=== PATIENT | female | born 1990 | race Two or more races ===

== ENCOUNTER 2025-10-02 12:46 | Observation (INO) | payer MEDICAID ==
[~2025-10-02 12:46] MED LIST: ASPI-543 PO; PREN-96 PO
--- NOTE | 2025-10-02 14:34 | DVH ---
CLINICAL HISTORY: decreased movement COMPARISON: US BIOPHYSICAL PROFILE on DOS: 09/28/25, US LESS THAN 14 WKS TRANSAB/VAG on DOS: 03/16/25, US PELVIS PREG on DOS: 09/22/23 TECHNIQUE: biophysical profile was performed. Transabdominal sonographic images of the fetus were obtained. FINDINGS: The fetus is in cephalic position. heart rate measures 150 BPM. Amniotic fluid index measures 14 cm. The placenta is posterior in position with no evidence of previa or abruption seen. Cervix appears closed on transabdominal images. Cervical length measures 2.4 cm. BPP profile is an overall score of 8/8, with 2/2 points for breathing, with at least one episode of breathing over a 30 second duration during a 30 minute observation, 2/2 points for movements, with 3 or more discrete body or limb movements, 2/2 points for tone, with one or more episodes of extremity extension with return to flexion, or opening and closing of hand, and 2/2 points for amniotic fluid, with at least 1 pocket of amniotic fluid that measures 2 cm in 2 perpendicular planes. IMPRESSION: 1. BPP score of 8/8. 2. Cervix appears closed and measures up to 2.4 cm in length.
--- NOTE | 2025-10-02 15:30 | DVHDS2 ---
Discharge Summary Date of Admission Oct 02, 2025 at 12:46 Date of Discharge: Oct 02, 2025 Admitting Diagnosis Forty weeks decreased movement questionable labor which was ruled out Wounds: None Labs/Diagnostic Data: None Brief Hx & Hospital Course: Patient had BPP and NST reassuring no sign of labor Consults/Reason for consult None Operations or Procedures NST BPP performed reassuring Condition at Discharge: Good Final Diagnosis/Problems List 40 weeks reassuring heart tones and ultrasound Discharge Disposition: Home Discharge Instruct/Medications Diet: Regular Activity: No Restrictions, As Tolerated Activity comment: Counts labor precautions Follow Up/Referral: Follow up with primary OBGYN return if decreased movement abnormal kick counts rupture of labor any concerns. Medications: None Scheduled Aspirin (Aspir-Low), 81 MG PO DAILY, (Reported) Vit W/ Ferrous Fumara ( One Daily), 1 TAB PO DAILY, (Reported) Discharge Statement: "Patient was advised to return to the ER or call 911 if any headaches, dizziness, shortness of breath, chest pain, abdominal pain, bleeding, fevers, or worsening of medical condition. Patient was counseled about treatment plan, medications, possible side effects, patientverbalized understanding. All questions were answered to the best of my ability. This discharge took greater then 30 minutes in planning, reviewing documentation, counseling the patient, and discussing with other team members." ASSESSMENT ASSESSMENT Assessment Visit Coding OBGYN Date of Service: Oct 02, 2025 Billing Provider: DEVORAH GIBSON DO SEXUAL ASSAULT NURSE Common Visit Codes: [id number] INP/OBS CARE(HIGH), 87434-NQX/OBS SAME DATE (LOW), 61811-RTI/OBS SAME DATE (MOD) SEXUAL ASSAULT NURSE Procedure Codes: 46878-42- NON-STRESS TEST DEVORAH GIBSON DO Oct 02, 2025 15:30
== END 2025-10-02 15:04 | disposition home or self-care (01) ==
LOC: UNDOADMOB 12:46 → LDRP 12:46
PROVIDERS: ADMIT Obstetrics & Gynecology; ATTEND Obstetrics & Gynecology
DX: O36.8130 Decreased fetal movements, third trimester, not applicable or unspecified (principal); Z3A.40 40 weeks gestation of pregnancy; Z98.890 Other specified postprocedural states
CPT/HCPCS: 59025; 76819; 81002; 94760; A4649; G0378

== ENCOUNTER 2025-10-05 17:30 | Inpatient (IN) | payer MEDICAID ==
[~2025-10-05] VITALS: Ht 160 cm; Wt 85.7 kg
[2025-10-05] MEDS ORDERED: LACTATED RINGER'S 1,000 ML IV SCH ×2 (17:45→19:00)
[2025-10-05] MEDS ORDERED: LIDOCAINE 2%HCL (LOCAL ANESTH.) INJ 20ML MDV IJ PRN (17:45)
[2025-10-05] MEDS ORDERED: BUTORPHANOL TARTRATE 2 MG/1 ML VIAL IV PRN ×2 (17:45)
[2025-10-05] MEDS ORDERED: hydrALAZINE HCL 20 MG/ML VL IV PRN ×2 (18:00→19:15)
[2025-10-05 18:35] LABS: Hematocrit 38.3 % (36.0-46.0); Hemoglobin 12.8 g/dL (12.2-16.2); Mean Corpuscular Hemoglobin 27.3 pg (28.0-32.0); Mean Corpuscular Volume 81.9 fL (80.0-100.0); Nucleated Red Blood Cells % 0.0 %
[2025-10-05 18:40] LABS: Urine Protein, UAD Negative (Negative)
[2025-10-05 18:52] LABS: Alanine Aminotransferase 14 U/L (7-40); Albumin 3.8 g/dL (3.2-4.8); Anion Gap 11 (5-15); BUN/Creatinine Ratio 16.4 (10.0-20.0); Blood Urea Nitrogen 10 mg/dL (9-23); Calcium 9.3 mg/dL (8.7-10.4); Potassium 4.0 mmol/L (3.5-5.1); Sodium 139 mmol/L (136-145); Total Protein 6.6 g/dL (5.7-8.2); Uric Acid 5.3 mg/dL (3.1-7.8)
[2025-10-05 18:56] LABS: Amphetamine Screen, Urine Neg (NEGATIVE); Barbiturate Scree,Urine Neg (NEGATIVE); Benzodiazephine Screen, Urine Neg (NEGATIVE); Cannabinoid Screen, Urine Neg (NEGATIVE); Cocaine Screen, Urine Neg (NEGATIVE); Opiate Scree,Urine Neg (NEGATIVE); Phencyclidine Screen, Urine Neg (NEGATIVE)
[2025-10-05 18:57] LABS: Alkaline Phosphatase 161 U/L (46-116); Bilirubin, Total 0.2 mg/dL (0.2-1.0); Carbon Dioxide 20 mmol/L (20-31); Chloride 108 mmol/L (98-107); Glucose 118 mg/dL (74-106)
[2025-10-05] MEDS: MAGNESIUM SULFATE 40MG/ML 1,000 ML IV ONE (18:59)
[2025-10-05] MEDS: MAGNESIUM SULFATE 100 ML IV ONE (18:59)
[2025-10-05] MEDS ORDERED: NALOXONE HCL 0.4 MG/ML VIAL IV ONE (19:00)
[2025-10-05] MEDS ORDERED: LIDOCAINE HCL 2 %PF INJ 10ML AMP IJ ONE (19:00)
[2025-10-05 19:07] LABS: Protein, Urine 20.8 mg/dL (1-14)
[2025-10-05] MEDS ORDERED: TERBUTALINE SULFATE 1 MG/ML 1ML VIAL SC PRN (19:15)
[2025-10-05] MEDS ORDERED: ONDANSETRON HCL 4 MG/2 ML VIAL IV PRN (19:15)
[2025-10-05] MEDS: MAGNESIUM SULFATE 100 ML IV STA (19:17)
--- NOTE | 2025-10-05 19:31 | DVHHP2 ---
OB CC & HPI Date Date of Admission: Oct 05, 2025 Patient Identification: : 4 Para: 2 EDC: Oct 02, 2025 EGA: 40.3 Chief Complaints: Reason for admission: active labor History of Present Complaints HPI: 35yo SIUP@40.3wks presents in labor. Pt reports UCs Q5 min that started this morning. Pt wants an epidural. Denies LOF/VB/GOLDBERG/vision changes/RUQ pain. Endorses +FM. PNC with Dr. Jaret [facility]ver[facility] office, no records available. Only 1hr GTT 130 and GBS negative. Pt reports PNC uncomplicated. Dating based on LMP c/w 1st trimester ultrasound. OB hx: 1. in 2013, complicated by preeclampsia 2. uncomplicated in 2023 3. SAB 2022 Past Medical History Cardiac: No pertinent Hx Pulmonary: No pertinent Hx Central Nervous System: No pertinent Hx GI: No pertinent Hx Hemotology/Oncology: No pertinent Hx Hepatobiliary: No pertinent Hx Psychiatric: No pertinent Hx Musculoskeletal: No pertinent Hx Rheumotologic: No pertinent Hx Infectious Disease: No peritnent Hx ENT: No pertinent Hx Renal/: No pertinent Hx Endocrine: No pertinent Hx Dermatology: No pertinent Hx Past Surgical History: Other (uteral reimplanation at 12yo) OB History OB History Care: Good Care (DIANE) Ultrasounds: Normal mid trimester US Obstetrical Complications: None Medical Complications: None Allergies: Coded Allergies: NO KNOWN ALLERGIES (Unverified , 10/05/25) Home Meds Reported Medications Vit W/ Ferrous Fumara ( One Daily) Daily Tab, 1 TAB PO DAILY, #90 TAB 3 Refills 09/28/25 Aspirin (Aspir-Low) 81 Mg Tab, 81 MG PO DAILY for 30 Days, MG 09/28/25 Current Medications Current Medications Medications (Trade) Dose Ordered Sig/Britney Route PRN Reason Start Time Stop Time Status Last Admin Lactated Ringer's 1,000 ml @ 125 mls/hr Q8H IV 10/05/25 17:45 Witch Kitty (Tucks) 1 pad PRN PRN TOP PERINEAL AREA DISCOMFORT 10/05/25 17:45 Sodium Lauryl Sulfate (Phisoderm) 240 ml PRN PRN TOP PERINEAL AREA DISCOMFORT 10/05/25 17:45 Benzocaine (Dermoplast) 1 applic PRN PRN TOP PERINEAL AREA DISCOMFORT 10/05/25 17:45 Butorphanol Tartrate (Stadol Injection) 1 mg Q4HPRN PRN IV MODERATE PAIN (4-6 PAIN SCALE) 10/05/25 17:45 Butorphanol Tartrate (Stadol Injection) 2 mg Q4HPRN PRN IV SEVERE PAIN (7-10 PAIN SCALE) 10/05/25 17:45 Lidocaine HCl (Xylocaine) 20 ml ONCE PRN IJ PERINEAL AREA DISCOMFORT 10/05/25 17:45 Hydralazine HCl (Apresoline Injection) 5 mg Q20MP PRN IV SBP>160 or DBP>105 10/05/25 18:00 10/05/25 19:01 DC Magnesium Sulfate 1,000 ml @ 50 mls/hr Q20H IV 10/05/25 19:00 Lactated Ringer's 1,000 ml @ 75 mls/hr [id number] IV 10/05/25 19:00 Magnesium Sulfate 100 ml @ 300 mls/hr ONCE STAT IV 10/05/25 18:56 10/05/25 19:15 DC 10/05/25 19:17 Labetalol HCl (Normodyne Tablet) 300 mg Q12HR PO 10/05/25 19:00 Hydralazine HCl (Apresoline Injection) 5 mg Q20MP PRN IV SBP>160 or DBP>95 10/05/25 19:15 Ondansetron HCl (Zofran) 4 mg Q4HP PRN IV NAUSEA / VOMITING 10/05/25 19:15 UNV Oxytocin 1,000 ml @ 6 ml/hr Q24H IV 10/05/25 19:15 UNV Terbutaline Sulfate (Brethine Inj) 0.25 mg ONCE PRN SC Uterine tachysystole 10/05/25 19:15 UNV Family & Social History Family/Social History Past Family/Social History: None pertinent Blood Type: Unknown Rubella: unknown RPR/VDRL: Unknown GBS Status: Unknown HBsAG: Unknown Review of Systems Constitutional: No symptom reported Ears, Nose, & Throat: No symptom reported Eyes: No symptom reported Pulmonary/Respiratory: No symptom reported Cardiovascular: No symptom reported Gastrointestinal: No symptom reported Genitourinary: No symptom reported Musculoskeletal: No symptom reported Skin: No symptom reported Psychiatric: No symptom reported Endocrine: No symptom reported Hemotologic/Lymphatic: No symptom reported OB Admission Exam Physical Exam Vitals: VSS except HTN (See cpn) HEENT: TMs Normal, Fontanelles Normal, Nasal Mucosa Normal, Eyes non-injected, Oropharynx Normal, PERRLA, Moist Membranes, EOMI Heart: Rhythm Normal Lungs: Clear Abdomen: Gravid Extremities: Normal Reflexes: Normal Cervical Dilatation: 4cm Effacement: Other (80) Station: 0 Membranes: Intact Heart Rate: 140's Accelerations: Accelerations Present Decelerations: No Decelerations Short Term Variability: Present Contractions on Admission: 6-10 Minutes Apart Duration: 60 Intensity: Moderate OB Plan Plan Admitting Diagnosis: Labor Plan: Other (labor augmentation with pitocin) Other Plan: A: 35yo IUP@40.3wks Spontaneous Labor with pitocin augmentatin Preeclampsia with severe features Category I EFM Intact Membranes GBS negative P: Admit to L&D Informed consent obtained Start IV pitocin when UCs space out. Pt agrees with POC monitoring per order Pain mgmt - RN to prep for epidural placement Frequent position changes in bed encouraged Limit SVE unless necessary Intrauterine resuscitation PRN Anticipate Severe range BPs, began antihypertensive IV protocol Hydralizine 5mg IVP q[address] Moncada's orders Begin Magnesium Sulfate for neuro protection per Dr. Moncada's orders Labetalol 300mg PO BID, per Dr. Moncada's orders Seizure precautions ordered Preeclampsia labs ordered Pennie Strange CNM co-management with Dr. Moncada. ABRBIE is managing labor while Dr. Moncada is managing preeclampsia. Primary RN notified of severe range BP parameters per Dr. Moncada (SBP >/= 160 and/or >/=DBP 95) and to call Dr. Moncada directly for preeclampsia/BP related issues. Visit Coding OBGYN Date of Service: Oct 05, 2025 Billing Provider: CRISTHIAN STRANGE CNM INCINERATOR PLANT LABORER Common Visit Codes: [id number] INP/OBS CARE (HIGH) INCINERATOR PLANT LABORER Procedure Codes: 38292-43- NON-STRESS TEST TONI BANDA STUDENTMDW Oct 05, 2025 19:31
[2025-10-05 19:36] LABS: INR 0.91 (0.9-1.15); Partial Thromboplastin Time 26.5 SEC (24.5-34.5); Prothrombin Time 9.7 sec (9.3-11.8)
--- NOTE | 2025-10-05 19:46 | DVH ---
LIMITED OB ULTRASOUND > 14 WKS: HISTORY: Post dates TECHNIQUE: Multiple real-time grayscale images of the gravid uterus with duplex Doppler color flow and M-mode spectral analysis. TRANSDUCER: Transabdominal FINDINGS: IUP single live fetus at 36 weeks 3 days based on composite averages of the BPD, head circumference, abdominal circumference and femur length Estimated weight 2921 g, +/-438 0.15 g; (6 lb 7 oz +/-15 oz) heart rate 141 beats per minute. KRISTAL 8.4 cm Cervix N/V Cephalic Presentation Posterior fundal Grade 3 Placenta without previa or abruption. ANATOMY: 4-CHAMBER HEART: Within normal limits STOMACH: Within normal limits RIGHT KIDNEY: Within normal limits LEFT KIDNEY: Within normal limits BLADDER: Within normal limits GESTATIONAL DATING: BPD: 9.93 cm = 36 weeks 1 day range 33 weeks 0 days - 39 weeks 2 days HC: 32.47 cm = 36 weeks 5 days range 34 weeks 0 days- 39 weeks 3 days AC: 32.49 cm = 36 weeks 3 days range 33 weeks 3 days 39 weeks 3 days FL: 7.07 cm = 36 weeks 2 days range 33 weeks 2 days- 39 weeks 1 day CI: 81.63 range 70.00 -86.00 FL/BPD: 79.17 range 71.0 -87.0 HC/AC: 1.00 range 0.92-1.07 FL/AC: 21.76 range 20.00 -24.00 FL/HC: 21 0.77 range 20.40 - 22.31 IMPRESSION: 1. IUP single live fetus at 36 weeks 3 days ,AUA corresponding to an ARIES of 10/30/2025 2. FHR: 141 bpm 3. Exam was difficult due to active labor. Difficult to obtain measurements. Placenta visualized without previa or abruption
[2025-10-05] MEDS: LABETALOL HCL 200 MG TAB PO SCH (20:46)
[2025-10-05] MEDS: WITCH HAZEL-GLYCERIN PAD TOP PRN (20:48)
[2025-10-05] MEDS: PHISODERM TOP SOLN 240ML BTL TOP PRN (20:48)
[2025-10-05] MEDS: DERMOPLAST 60ML BOTTLE TOP PRN (20:48)
--- NOTE | 2025-10-05 21:35 | EPIDURAL ---
Anesthesia Procedural Note - Epidural Date: Oct 05, 2025 Informed consent obtained?: Yes Medication Administered: Fentanyl 100 mcg 2% Lidocaine Administered: 5 Medication Administered: ePHEDrine 5 mg IV Sterile prept drape: Yes Spinal level of insertion: L2-L3 Test dose of lidocaine & Epine: Negative Infusion started: Yes Start time: 21:00 End time: 21:35 OLVIN CASTILLO MD Oct 05, 2025 21:35
[2025-10-05] MEDS: MAGNESIUM SULFATE 40MG/ML 1,000 ML IV SCH (22:43)
[2025-10-05] MEDS: ROPIVACAINE HCL 100 ML ONE (22:46)
[2025-10-05] MEDS: fentaNYL CITRATE 100 MCG/2 ML VL IV ONE (22:53)
[2025-10-05] MEDS: ACETAMINOPHEN 325 MG TAB PO PRN (23:47)
[2025-10-06] MEDS: LACT. RINGERS/OXYTOCIN 20UNITS 1,000 ML IV SCH (00:53)
[2025-10-06] MEDS: CALCIUM CARB 500 MG CHEW TAB PO ONE (02:02)
[2025-10-06] MEDS: LACT. RINGERS/OXYTOCIN 20UNITS 500 ML IV ONE ×2 (03:35→03:36)
[2025-10-06] MEDS: IBUPROFEN 600 MG TAB PO PRN ×2 (04:04→11:04)
--- NOTE | 2025-10-06 06:41 | DVHPN2 ---
OB Labor Progress Note Date and Time Seen Date Seen: Oct 05, 2025 Time Seen: 21:40 Subjective Patient reports: Feels better Subjective Comment Pt comfortable with epidural Objective Vital Signs VSS except for BP, due to epidural see cpn Monitoring Method Monitoring Method: External Heart Rate Heart Rate Baseline: 145 Heart Rate Variability: Moderate Presence of FHR Accelerations: Yes Presence of FHR Decelerations: Yes Heart Rate Type of Decel: Variable Decelerations, Late Decelerations Changes in Trends of Patterns: Yes Are all 5 Components of the FH: Yes If NO Corrective Measures Comp: Intrauterine resusitation measures done Contractions Contractions Frequency: Occasional Duration of Contraction: 70 Contractions Intensity: Strong Contractions Resting Tone: Relaxed Membranes Membranes: Bulging Vaginal Exam Vag Exam Deferred: No Vaginal Exam Dilation: 5 Vaginal Exam Effacement: 80 Vaginal Exam Station: 0 Vaginal Exam Presentation: VTX Vaginal Exam Show: Small Medications Medications - Pitocin: No Medication - Epidural: Yes Medication - Other magnesium sulfate IV 2g/hr infusing per Dr. Moncada's order Lab Results Lab Results Vital Signs Date Time Temp Pulse Resp B/P (MAP) Pulse Ox O2 Delivery O2 Flow Rate FiO2 10/06/25 07:00 Room Air 10/05/25 22:53 125/73 10/05/25 21:46 90 Current Medications Medications (Trade) Dose Ordered Sig/Britney Start Time Stop Time Status Last Admin Dose Admin Lactated Ringer's 1,000 ml @ 125 mls/hr Q8H 10/05/25 17:45 Hold Witch Kitty (Tucks) 1 pad PRN PRN 10/05/25 17:45 10/05/25 20:48 1 PAD Sodium Lauryl Sulfate (Phisoderm) 240 ml PRN PRN 10/05/25 17:45 10/05/25 20:48 240 ML Benzocaine (Dermoplast) 1 applic PRN PRN 10/05/25 17:45 10/05/25 20:48 1 APPLIC Butorphanol Tartrate (Stadol Injection) 1 mg Q4HPRN PRN 10/05/25 17:45 10/05/25 23:01 DC Butorphanol Tartrate (Stadol Injection) 2 mg Q4HPRN PRN 10/05/25 17:45 10/05/25 23:01 DC Lidocaine HCl (Xylocaine) 20 ml ONCE PRN 10/05/25 17:45 10/06/25 03:40 DC Oxytocin 500 ml @ 999 mls/hr Q31M ONCE 10/05/25 17:45 10/06/25 03:40 DC 10/06/25 03:35 999 MLS/HR Oxytocin 500 ml @ 125 mls/hr Q4H ONCE 10/05/25 18:15 10/05/25 22:14 DC 10/06/25 03:36 125 MLS/HR Hydralazine HCl (Apresoline Injection) 5 mg Q20MP PRN 10/05/25 18:00 10/05/25 19:01 DC Magnesium Sulfate 1,000 ml @ 50 mls/hr Q20H 10/05/25 19:00 10/05/25 22:43 50 MLS/HR Lactated Ringer's 1,000 ml @ 75 mls/hr [id number] 10/05/25 19:00 10/06/25 03:40 DC Magnesium Sulfate 100 ml @ 300 mls/hr ONCE STAT 10/05/25 18:56 10/05/25 19:15 DC 10/05/25 19:17 300 MLS/HR Labetalol HCl (Normodyne Tablet) 300 mg Q12HR 10/05/25 19:00 10/05/25 20:46 300 MG Hydralazine HCl (Apresoline Injection) 5 mg Q20MP PRN 10/05/25 19:15 Naloxone HCl (Narcan) 0.2 mg PRN ONCE 10/05/25 19:00 10/06/25 03:40 DC Ephedrine Sulfate (ePHEDrine SULFATE) 10 mg PRN ONCE 10/05/25 19:00 10/06/25 03:40 DC 10/05/25 22:54 10 MG Fentanyl Citrate 100 mcg ONCE ONCE 10/05/25 19:00 10/06/25 03:40 DC 10/05/25 22:53 100 MCG Lidocaine HCl (Xylocaine-Pf 2% Injection) 10 ml ONCE ONCE 10/05/25 19:00 10/06/25 03:40 DC Ondansetron HCl (Zofran) 4 mg Q4HP PRN 10/05/25 19:15 Oxytocin 1,000 ml @ 6 ml/hr Q24H 10/05/25 19:15 10/06/25 03:40 DC 10/06/25 00:53 6 ML/HR Terbutaline Sulfate (Brethine Inj) 0.25 mg ONCE PRN 10/05/25 19:15 10/06/25 03:40 DC Acetaminophen (Tylenol Tablet) 975 mg Q6HP PRN 10/05/25 23:00 10/06/25 03:44 DC 10/05/25 23:47 975 MG Misoprostol (Cytotec) 1,000 mcg ONCE PRN 10/06/25 01:30 Oxytocin 10 unt ONCE PRN 10/06/25 01:30 Calcium Carbonate (Tums) 500 mg ONCE ONCE 10/06/25 02:00 10/06/25 02:01 DC 10/06/25 02:02 500 MG Ibuprofen (Motrin Tablet) 800 mg Q6HP PRN 10/06/25 03:45 10/06/25 04:04 800 MG Docusate Sodium (Colace Capsule) 200 mg HS 10/06/25 22:00 Acetaminophen (Tylenol Tablet) 650 mg Q4HP PRN 10/06/25 03:45 Docusate Sodium (Colace Capsule) 200 mg HS 10/06/25 22:00 Laboratory Tests Test 10/05/25 23:10 10/05/25 18:20 10/05/25 17:25 Range/Units Magnesium Lvl (Mg Sulfate Therapy) 4.92 4.0-7.1 mg/dL White Blood Count 10.7 4.4-10.8 10^3/uL Red Blood Count 4.67 4.0-5.20 10^6/uL Hemoglobin 12.8 12.2-16.2 g/dL Hematocrit 38.3 36.0-46.0 % Mean Corpuscular Volume 81.9 80.0-100.0 fL Mean Corpuscular Hemoglobin 27.3 L 28.0-32.0 pg Mean Corpuscular Hemoglobin Concent 33.3 32.0-36.0 g/dL Red Cell Distribution Width 15.0 H 11.8-14.3 % Platelet Count 289 140-450 10^3/uL Mean Platelet Volume 8.6 6.9-10.8 fL Neutrophils (%) (Auto) 78.4 37.0-80.0 % Lymphocytes (%) (Auto) 15.8 10.0-50.0 % Monocytes (%) (Auto) 4.0 0.0-12.0 % Eosinophils (%) (Auto) 0.9 0.0-7.0 % Basophils (%) (Auto) 0.9 0.0-2.0 % Neutrophils # (Auto) 8.4 1.6-8.6 10 ^3/uL Lymphocytes # (Auto) 1.7 0.4-5.4 10 ^3/uL Monocytes # (Auto) 0.4 0-1.3 10 ^3/uL Eosinophils # (Auto) 0.1 0-0.8 10 ^3/uL Basophils # (Auto) 0.1 0-0.2 10 ^3/uL Nucleated Red Blood Cells 0.0 % Prothrombin Time 9.7 9.3-11.8 sec Prothrombin Time INR 0.91 0.9-1.15 Activated Partial Thromboplast Time 26.5 24.5-34.5 SEC Sodium Level 139 136-145 mmol/L Potassium Level 4.0 3.5-5.1 mmol/L Chloride Level 108 H 98-107 mmol/L Carbon Dioxide Level 20 20-31 mmol/L Anion Gap 11 5-15 Blood Urea Nitrogen 10 9-23 mg/dL Creatinine 0.61 0.550-1.02 mg/dL Glomerular Filtration Rate Calc 119 >90 mL/min BUN/Creatinine Ratio 16.4 10.0-20.0 Serum Glucose 118 H 74-106 mg/dL Uric Acid 5.3 3.1-7.8 mg/dL Calcium Level 9.3 8.7-10.4 mg/dL Total Bilirubin 0.2 0.2-1.0 mg/dL Aspartate Amino Transferase (AST) 16 13-40 U/L Alanine Aminotransferase (ALT) 14 7-40 U/L Alkaline Phosphatase 161 H 46-116 U/L Total Protein 6.6 5.7-8.2 g/dL Albumin 3.8 3.2-4.8 g/dL Treponema pallidum Antibody Non-reactive Negative Hepatitis B Surface Antigen Negative Negative Hepatitis B Surface Antibody Positive H Negative Hepatitis C Antibody Negative Negative HIV (1&2) Antibody Negative Negative Rubella Antibody Positive Urine Color Colorless Yellow Urine Clarity Clear Clear Urine pH 6.0 5.0-9.0 Urine Specific [place] 1.006 1.001-1.035 Urine Protein Negative Negative Urine Ketones Negative Negative Urine Blood Negative Negative /uL Urine Nitrite Negative Negative Urine Bilirubin Negative Negative Urine Urobilinogen Normal Negative mg/dL Urine Leukocyte Esterase Negative Negative /uL Urine RBC None seen 0 - 4 /hpf Urine Microscopic WBC < 1 0-5 /HPF Urine Squamous Epithelial Cells Few <5 /hpf Urine Bacteria Few H None Seen /hpf Urine Creatinine 20.04 L 30.0-125.0 mg/dL Urine Protein/Creatinine Ratio 1.04 Urine Glucose Normal Normal mg/dL Urine Total Protein 20.8 H 1-14 mg/dL Urine Opiates Screen Neg NEGATIVE Urine Fentanyl Screen Neg NEGATIVE Urine Barbiturates Screen Neg NEGATIVE Urine Phencyclidine Screen Neg NEGATIVE Urine Amphetamines Screen Neg NEGATIVE Urine Benzodiazepines Screen Neg NEGATIVE Urine Cocaine Screen Neg NEGATIVE Urine Cannabinoids Screen Neg NEGATIVE Chlamydia trachomatis (CHENG) Pending Neisseria gonorrhoeae (CHENG) Pending Assessment Assessment A: 35yo IUP@40.3wks Spontaneous Labor with pitocin augmentation Preeclampsia with severe features Category II EFM Intact Membranes GBS negative Plan Plan P: Start IV pitocin when Category I EFM monitoring per order Pain mgmt - epidural in place Frequent position changes in bed encouraged Limit SVE unless necessary Intrauterine resuscitation PRN Anticipate Nicci. BARBIE Strange co-management with Dr. Moncada. BARBIE is managing labor while Dr. Moncada is managing preeclampsia. Primary RN notified of severe range BP parameters per Dr. Moncada (SBP >/= 160 and/or >/=DBP 95) and to call Dr. Moncada directly for preeclampsia/BP related issues. Plan discussed with: Patient, Spouse Visit Coding OBGYN Date of Service: Oct 06, 2025 Billing Provider: CRISTHIAN STARNGE CNM COLLAR TACKER Common Visit Codes: [id number] INP/OBS CARE(HIGH) TONI BANDA STUDENTMDW Oct 06, 2025 06:41
--- NOTE | 2025-10-06 06:58 | LDN2 ---
Labor and Delivery Note Date 10/06/25 Age 35 4 Para 3 now AB 1 EDC 10/02/2025 EGA 40.4 Diagnosis spontaneous labor, preeclampsia with severe features then . Vaginal Delivery: VTX Vacuum Assisted: No Placenta: Spontaneous Sex: Male Weight pending Apgars 8/9 Nuchal Cord Transected: No Amniotic Fluid: Meconium Stained, Thin Anesthesia epidural Episiotomy: No Extension: No Repaired with NONE EBL 100MLS QBL Labs Laboratory Tests 10/05/25 18:20: Hepatitis B Surface Antigen Negative, HIV (1&2) Antibody Negative, Rubella Antibody Positive Blood Bank 10/05/25 18:20: Blood Type A POSITIVE Complications preeclampsia with severe features Conditions Stable Software Development Specialist SOMU Comments/Significant Med Philippe At 0236 this 35yo now delivered a viable Male infant by w/ APGARS 8/9. CARMEN. SROM with light meconium at . TXA 1g IVPB given. Infant placed skin to skin on pts chest. Cord clamped and cut after pulsation ceased. Intact 3-vessel cord placenta delivered spontaneously, Gayla. Pitocin IV bolus started. Placenta sent to pathology due to pre-eclampsia. Patient had epidural anesthesia. Cervix/vagina/labia/perineum inspected and intact. Fundus at U, firm, midline, and light lochia. QBL 100ml. VSS. Count correct x2. Patient to care and baby to couplet care, both stable. Pt started on magnesium sulfate at 1g/hr for 12hrs per Dr. Moncada's order. Visit Coding OBGYN Date of Service: Oct 06, 2025 Billing Provider: CRISTHIAN NEIL CNM REQUIREMENTS ANALYST Common Visit Codes: PROCEDURE ONLY REQUIREMENTS ANALYST Procedure Codes: [id number] DEL INCLUDING TONI BANDA STUDENTMDW Oct 06, 2025 06:58
[2025-10-06 07:00] VITALS: BP 134/83; PULSE 86; RESP 16; TEMP 97.8; O2SAT 96
[2025-10-06] MEDS: ACETAMINOPHEN 325 MG TAB PO PRN (07:40)
[2025-10-06] MEDS ORDERED: TRANEXAMIC ACID 1,000 mg/10ml INJ VIAL IV ONE (10:56)
[2025-10-06 11:00] VITALS: BP 138/85; PULSE 82; RESP 17; TEMP 97.5; O2SAT 98
[2025-10-06 14:31] VITALS: BP 120/68; PULSE 83; RESP 16; TEMP 98.1; O2SAT 97
[2025-10-06 18:30] VITALS: BP 122/71; PULSE 81; RESP 16; TEMP 97.6; O2SAT 97
[2025-10-06] MEDS: OXYTOCIN 10UNIT/ML 1ML VIAL IM PRN (21:54)
[2025-10-06] MEDS: DOCUSATE SOD 100 MG CAP PO SCH (21:58)
[2025-10-06] MEDS ORDERED: DOCUSATE SOD 100 MG CAP PO SCH (22:00)
[2025-10-06] MEDS: ALBUTEROL SULF 2.5 MG/0.5ML(0.5%) NEB SOLN ONE (22:48)
[2025-10-06] MEDS: ALBUTEROL SULF 2.5 MG/0.5ML(0.5%) NEB SOLN NEB ONE (22:48)
[2025-10-06 23:00] VITALS: BP 109/61; PULSE 80; RESP 16; TEMP 97.8; O2SAT 98
[2025-10-07 00:31] VITALS: PULSE 75
[2025-10-07 03:06] VITALS: BP 113/66; PULSE 81; RESP 16; TEMP 97.9; O2SAT 99
[2025-10-07] MEDS ORDERED: IBU600T PO (05:58)
[2025-10-07] MEDS ORDERED: DOCU-94 PO (05:58)
[2025-10-07] MEDS ORDERED: LABE100T8 PO (05:58)
--- NOTE | 2025-10-07 06:24 | DVHPN2 ---
Progress Note Date Seen: Oct 07, 2025 Subjective Callie is resting L lateral upon entry to the room. Baby boy was transferred to [facility]. CNM visited with patient multiple times throughout the night. Patient reports feeling some asthma exacerbation and chest pressure. EKG done and normal sinus. Albuterol treatment done by RT. Patient states the pressure and trouble breathing resolved after treatment. Callie's labetalol has been held two nights in a row r/t lowered BP. SUBJECTIVE -Lochia minimal -Tolerating regular diet well. -Pain relieved with oral medication PRN -Ambulating and voiding well w/o feeling lightheaded or dizzy. -Passing flatus but no BM yet -Pumping and hand expressing -Desires and requests to be discharged home today (10/07) vital signs Vital Sign Date Time Temp Pulse Resp B/P (MAP) Pulse Ox O2 Delivery O2 Flow Rate FiO2 10/07/25 03:06 97.9 81 16 113/66 (82) 99 97.9 10/06/25 18:30 Room Air Total Intake and Output 10/06/25 10/06/25 10/07/25 15:00 23:00 07:00 Output Total 1200 ml Balance -1200 ml medications Current Medications Medications Dose Ordered Sig/Britney Route Start Time Stop Time Status Last Admin Dose Admin Lactated Ringer's 1,000 ml @ 125 mls/hr Q8H IV 10/05/25 17:45 Hold Witch Kitty 1 pad PRN PRN TOP 10/05/25 17:45 10/05/25 20:48 1 PAD Sodium Lauryl Sulfate 240 ml PRN PRN TOP 10/05/25 17:45 10/05/25 20:48 240 ML Benzocaine 1 applic PRN PRN TOP 10/05/25 17:45 10/05/25 20:48 1 APPLIC Magnesium Sulfate 1,000 ml @ 50 mls/hr Q20H IV 10/05/25 19:00 10/05/25 22:43 50 MLS/HR Hydralazine HCl 5 mg Q20MP PRN IV 10/05/25 19:15 Ondansetron HCl 4 mg Q4HP PRN IV 10/05/25 19:15 Misoprostol 1,000 mcg ONCE PRN SD 10/06/25 01:30 Oxytocin 10 unt ONCE PRN IM 10/06/25 01:30 Docusate Sodium 200 mg HS PO 10/06/25 22:00 Cancel Acetaminophen 650 mg Q4HP PRN PO 10/06/25 03:45 10/07/25 04:30 650 MG Docusate Sodium 200 mg HS PO 10/06/25 22:00 10/06/25 21:58 200 MG Ibuprofen 600 mg Q6HP PRN PO 10/06/25 10:45 10/07/25 03:01 600 MG Labetalol HCl 100 mg Q12HR PO 10/07/25 10:00 laboratory and microbiology Laboratory Tests 10/05/25 18:20 Test 10/05/25 18:20 Range/Units Serum Glucose 118 H 74-106 mg/dL Objective OBJECTIVE -A&O x4. No apparent distress. Affect appropriate -Afebrile, VSS -Chest: heart and lung sounds normal. -Breasts: Nipples intact w/o cracks or soreness -Abdomen: normal BS, soft, non-tender, no rebound or guarding, fundus firm @ U- 1, lochia minimal -Perineum: no edema, or erythema -Extremities: no edema or tenderness Problems(with codes): (1) Normal spontaneous vaginal delivery Assessment/Plan ASSESSMENT -35 yo now ppd #1 s/p doing well. -Blood Type: A+ -Pumping -Rubella Immune -Baby at [facility] -Asthma -Hx of pre-eclampsia and on magnesium during this delivery PLAN -Discussed held labetalol doses and BP trends with Dr Moncada. states to change labetalol order from 300mg BID to 100mg BID PO -Continue pain management with oral medications as previously ordered. Discharge medications, including labetalol, ordered and patient aware -Increase fluid intake and fiber in diet to promote regular bowel movements, Laxative PRN -Encouraged patient to continue taking vitamin and iron -Patient to follow-up with primary care if asthma symptoms persists -Educated patient on self care and warning signs of PPH, PPD, and pre-eclampsia. Answered all pt questions and concerns -Continue routine care and anticipate discharge today Plan discussed with: Patient Visit Coding OBGYN Date of Service: Oct 07, 2025 Billing Provider: DANG KWOK CNM PROJECT LEADER Common Visit Codes: [id number] INP/OBS CARE(MOD) DANG KWOK CNM Oct 07, 2025 06:24
--- NOTE | 2025-10-07 06:28 | DVHDS2 ---
Obstetrics Discharge Summary Obstetrics Discharge Summary Date of Admission: Oct 05, 2025 Date of Discharge: Oct 07, 2025 Reason For Admission: Onset of Labor Procedures: Mgmt of Obstetrics Compli (elevated BPs. Patient placed on magnesium infusion) Intrapartum Procedures: Spontaneous vaginal deliv Operative Complicat: None Discharge Diagnosis: Term -Delivered Discharge Information: Activity (Unrestricted. Advance as tolerated. Balance activities with rest periods. No heavy lifting, pushing or straining. Pelvic rest x 6 weeks), Diet (Routine regular diet rich in fiber, protein, iron and vitamin C with adequate fluid intake.), Medications (Ibuprofen 600mg every 6 hours as needed for pain. Colace 100mg twice a day as needed to keep bowel movements soft and prevent constipation. Continue Vitamin and iron. Labetalol 100mg PO BID), Instructions (Routine), Discharge to (Home), Accompanied by (partner), Discarge date (10/07/2025) Discharge Care Plan Instructions - self care instructions given - emergency signs and symptoms including but not limited to pre-eclampsia precautions and signs of infection, PPH & of PPD reviewed with patient. -Follow up with OB Provider in 2 weeks and again at 6 weeks Visit Coding OBGYN Date of Service: Oct 07, 2025 Billing Provider: DANG KWOK CNM ACCOUNTING FILE CLERK Common Visit Codes: 56231-WIS/OBS DISCH DAY >30MIN DANG KWOK CNM Oct 07, 2025 06:28
[2025-10-07 06:53] VITALS: BP 120/77; PULSE 90; RESP 16; TEMP 98.2; O2SAT 97
[2025-10-07] MEDS ORDERED: hydrALAZINE HCL 20 MG/ML VL IV ONE (08:30)
--- NOTE | 2025-10-07 09:44 | ECG ---
[facility] Test Date: 2025-10-06 Test Time: 22:56:37 Pat Name: GRACIE GU Department: Room: [facility] A Gender: F Multi Care Technician: MARIA LUISA MACHADO : 1990 Requested By: DANG KWOK Order Number: [id number] Reading MD: Measurements Intervals [place] Rate: 75 P: 55 WA: 150 QRS: 95 QRSD: 88 T: 51 QT: 378 QTc: 422 Interpretive Statements Normal sinus rhythm Possible Left atrial enlargement Rightward axis Please click the below link to view image of tracing.
[2025-10-07] MEDS ORDERED: LABETALOL HCL 200 MG TAB PO SCH (10:00)
[2025-10-08 05:08] LABS: Chlamydia Trachomatis, NAA Negative (Negative); Neisseria gonorrhoeae, NAA Negative (Negative)
== END 2025-10-07 08:31 | disposition home or self-care (01) | DRG 560 ==
LOC: LDRP 17:30
PROVIDERS: ADMIT Obstetrics & Gynecology; ATTEND Obstetrics & Gynecology
PROC: 3E0R3BZ Introduction of Anesthetic Agent into Spinal Canal, Percutaneous Approach (ICD-10-PCS; 2025-10-05)
PROC: 00HU33Z Insertion of Infusion Device into Spinal Canal, Percutaneous Approach (ICD-10-PCS; 2025-10-05)
PROC: 10E0XZZ Delivery of Products of Conception, External Approach (ICD-10-PCS; principal; 2025-10-06)
DX: O48.0 Post-term pregnancy (principal); Z37.0 Single live birth; O14.14 Severe pre-eclampsia complicating childbirth; J45.901 Unspecified asthma with (acute) exacerbation; Z3A.40 40 weeks gestation of pregnancy; O99.52 Diseases of the respiratory system complicating childbirth; O77.0 Labor and delivery complicated by meconium in amniotic fluid
CPT/HCPCS: 36415; 59025; 59409; 62282; 76805; 80053; 80307; 81001; 81002; 82570; 83735; 84156; 84550; 85025; 85610; 85730; 86703; 86706; 86762; 86780; 86803; 86850; 86900; 86901; 87340; 93005; 94640; 94760; 94762; 96360; 96361; 96365; 96366; G0378; J2590